=== PATIENT | female | born 1965 | race Caucasian/White ===

== ENCOUNTER 2016-04-20 12:52 | Emergency (ER) | payer BC, OTHER ==
[~2016-04-20] VITALS: Ht 170.2 cm; Wt 87.0 kg
[~2016-04-20 12:52] MED LIST: LORT5TAB PO; NAPR500 PO
[2016-04-20 13:02] VITALS: BP 137/94; PULSE 74; RESP 16; TEMP 98.3; O2SAT 98
[2016-04-20] MEDS ORDERED: BIRTH CONTROL (14:21)
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
[2016-04-20] MEDS ORDERED: NAPR500T PO (16:50)
[2016-04-20] MEDS ORDERED: ROBA750T PO (16:50)
[2016-04-20 17:06] VITALS: BP 130/80
== END 2016-04-20 17:07 | disposition home or self-care (01) ==
LOC: PHED 12:52 → PHEFT 17:07
DX: S06.0X0A Concussion without loss of consciousness, initial encounter (principal); R51 Headache; S16.1XXA Strain of muscle, fascia and tendon at neck level, initial encounter; R42 Dizziness and giddiness; W20.8XXA Other cause of strike by thrown, projected or falling object, initial encounter; Y92.511 Restaurant or cafe as the place of occurrence of the external cause; Y99.8 Other external cause status
CPT/HCPCS: 70450; 72125; 72128